=== PATIENT | male | born 1990 | race Two or more races ===

== ENCOUNTER 2016-08-10 15:38 | Emergency (ER) | payer SELFPAY ==
[~2016-08-10] VITALS: Ht 167.6 cm; Wt 61.2 kg
[2016-08-10 16:13] LABS: BILIRUBIN,URINE NEGATIVE (NEG); GLUCOSE,URINE NEGATIVE (NEG); NITRITE,URINE NEGATIVE (NEG); PROTEIN,URINE 30 mg/dL (NEG-TRACE); UROBILINOGEN,URINE 0.2 mg/dL (0.2 mg/dL)
[2016-08-10] MEDS ORDERED: KETOROLAC TROMETHAMINE 30 MG/ML INJ. IV ONE (16:15)
[2016-08-10] MEDS ORDERED: TAMSULOSIN 0.4 MG CAP.ER.24H. PO ONE (16:15)
[2016-08-10] MEDS ORDERED: IV NORMAL SALINE 1000ML BAG 1,000 ML IV ONE (16:15)
[2016-08-10] MEDS ORDERED: MORPHINE SULFATE 10 MG/ML VIAL. IV ONE (16:15)
[2016-08-10 16:27] LABS: BACTERIA,URINE 0 /HPF (0-FEW); WBC,URINE >40 /HPF (0-4)
--- NOTE | 2016-08-10 16:33 | RAD ---
CT of the abdomen and pelvis without contrast, 08/10/2016: History: Flank pain Noncontrast scans were obtained utilizing the renal stone protocol. There are surgical implants related to the vertebral bodies from L1 through L3. Associated artifacts degrade image quality in the renal regions. No intrarenal calculus is identified. No hydronephrosis is evident. The proximal ureters are not clearly seen. No radiopacity is seen along the course of either ureter to suggest a ureteral calculus. The partially filled urinary bladder is unremarkable. There is mild linear atelectasis or scarring posteriorly in the lung bases. The unopacified liver is unremarkable. The gallbladder is not well distended. No pancreatic abnormality is seen. The spleen is unremarkable. The bowel loops are not distended. The abdominal gas pattern is unremarkable. No free fluid or free air is evident in the abdomen or pelvis. IMPRESSION: No urinary tract calculi are identified, although the kidneys are partially obscured by artifacts arising from lumbar spine surgical implants. PQRS Compliance Statement: One or more of the following individualized dose reduction techniques were utilized for this examination: 1. Automated exposure control 2. Adjustment of the mA and/or kV according to patient size 3. Use of iterative reconstruction technique
[2016-08-10 16:36] LABS: BASO # 0.1 x10^3/uL (0.0-0.2); BASO % 1 % (0-3); EOS % 1 % (0-3); HEMATOCRIT 39.9 % (39.0-53.0); HEMOGLOBIN 13.2 g/dL (13.0-17.5); LYMPH # 2.9 x10^3/uL (1.0-4.8); LYMPH % 35 % (24-48); MEAN CORPUSCULAR HEMOGLOBIN 28 pg (25-35); MEAN CORPUSCULAR HGB CONC 33 g/dL (31-37); MEAN CORPUSCULAR VOLUME 83 fL (79-100); MONO % 12 % (0-9); NEUT % 52 % (31-73); PLATELET COUNT 254 x10^3/uL (140-400); RED BLOOD COUNT 4.78 x10^6/uL (4.30-5.70); RED CELL DISTRIBUTION WIDTH 13.9 % (11.5-14.5); WHITE BLOOD COUNT 8.4 x10^3/uL (4.0-11.0)
--- NOTE | 2016-08-10 16:48 | PHYS DOC ---
Past Medical History Past Medical History: No Pertinent History Past Surgical History: Other Additional Past Surgical Histo: back Alcohol Use: Rarely Drug Use: None Adult General Chief Complaint Chief Complaint: PAIN ON URINATION HPI HPI Patient is a 26 year old male with history of lumbar surgery who presents today with right flank pain that began a couple days ago. Patient describes the pain as sharp. Patient states he was seen by the PCP who did a urine analysis and noted patient has infection in his urine and was concerned patient could have a kidney stone. Patient was sent to the ED to be evaluated. Patient states he has had subjective fevers for 3 days. Patient denies any nausea vomiting. Review of Systems Review of Systems Constitutional: fever Eyes: Denies change in visual acuity, redness, or eye pain [] HENT: Denies nasal congestion or sore throat [] Respiratory: Denies cough or shortness of breath [] Cardiovascular: No additional information not addressed in HPI [] GI: Denies abdominal pain, nausea, vomiting, bloody stools or diarrhea [] : Right flank pain Musculoskeletal: Denies back pain or joint pain [] Integument: Denies rash or skin lesions [] Neurologic: Denies headache, focal weakness or sensory changes [] Endocrine: Denies polyuria or polydipsia [] Current Medications Current Medications Current Medications Medications (Trade) Dose Ordered Sig/[facility] Start Time Stop Time Status Last Admin Dose Admin Ketorolac Tromethamine (Toradol) 30 mg 1X ONCE 08/10/16 16:15 08/10/16 16:16 DC 08/10/16 16:36 30 MG Morphine Sulfate 5 mg 1X ONCE 08/10/16 16:15 08/10/16 16:16 DC 08/10/16 16:36 5 MG Sodium Chloride (Iv Sodium Chloride 0.9% 1000ml Bag) 1,000 ml @ 1,000 mls/hr 1X ONCE 08/10/16 16:15 08/10/16 17:14 08/10/16 16:36 1,000 MLS/HR Tamsulosin HCl (Flomax) 0.4 mg 1X ONCE 08/10/16 16:15 08/10/16 16:16 DC 08/10/16 16:35 0.4 MG Allergies Allergies Allergies Coded Allergies Type Severity Reaction Last Updated Verified No Known Drug Allergies 08/10/16 No Physical Exam Physical Exam Constitutional: Well developed, well nourished, no acute distress, non-toxic appearance. [] HENT: Normocephalic, atraumatic, bilateral external ears normal, oropharynx moist, no oral exudates, nose normal. [] Eyes: PERRLA, EOMI, conjunctiva normal, no discharge. [] Neck: Normal range of motion, no tenderness, supple, no stridor. [] Cardiovascular:Heart rate regular rhythm, no murmur [] Lungs & Thorax: Bilateral breath sounds clear to auscultation [] Abdomen: Bowel sounds normal, soft, no tenderness, no masses, no pulsatile masses. [] Skin: Warm, dry, no erythema, no rash. [] Back: Old healed surgical scar noted on the left flank region. No tenderness, mild right CVA tenderness. [] Extremities: No tenderness, no cyanosis, no clubbing, ROM intact, no edema. [] Neurologic: Alert and oriented X 3, normal motor function, normal sensory function, no focal deficits noted. [] Psychologic: Affect normal, judgement normal, mood normal. [] Current Patient Data Vital Signs Vital Signs Date Time Temp Pulse Resp B/P Pulse Ox O2 Delivery O2 Flow Rate FiO2 08/10/16 16:36 16 08/10/16 15:50 98.6 80 99 Room Air 98.6 Lab Values Laboratory Tests Test 08/10/16 16:00 08/10/16 16:20 Urine Collection Type Unknown Urine Color Yellow Urine Clarity Clear Urine pH 6.0 Urine Specific [place] 1.020 Urine Protein 30mg/dL (NEG-TRACE) Urine Glucose (UA) Negativemg/dL (NEG) Urine Ketones (Stick) Negativemg/dL (NEG) Urine Blood Large (NEG) Urine Nitrite Negative (NEG) Urine Bilirubin Negative (NEG) Urine Urobilinogen Dipstick 0.2mg/dL (0.2 mg/dL) Urine Leukocyte Esterase Small (NEG) Urine RBC 6-10/HPF (0-2) Urine WBC >40/HPF (0-4) Urine Bacteria 0/HPF (0-FEW) Urine Mucus Marked/LPF White Blood Count 8.4x10^3/uL (4.0-11.0) Red Blood Count 4.78x10^6/uL (4.30-5.70) Hemoglobin 13.2g/dL (13.0-17.5) Hematocrit 39.9% (39.0-53.0) Mean Corpuscular Volume 83fL (79-100) Mean Corpuscular Hemoglobin 28pg (25-35) Mean Corpuscular Hemoglobin Concent 33g/dL (31-37) Red Cell Distribution Width 13.9% (11.5-14.5) Platelet Count 254x10^3/uL (140-400) Neutrophils (%) (Auto) 52% (31-73) Lymphocytes (%) (Auto) 35% (24-48) Monocytes (%) (Auto) 12% (0-9) H Eosinophils (%) (Auto) 1% (0-3) Basophils (%) (Auto) 1% (0-3) Neutrophils # (Auto) 4.4x10^3uL (1.8-7.7) Lymphocytes # (Auto) 2.9x10^3/uL (1.0-4.8) Monocytes # (Auto) 1.0x10^3/uL (0.0-1.1) Eosinophils # (Auto) 0.0x10^3/uL (0.0-0.7) Basophils # (Auto) 0.1x10^3/uL (0.0-0.2) Laboratory Tests 08/10/16 16:20 EKG EKG [] Radiology/Procedures Radiology/Procedures []PROCEDURE: CT ABDOMEN PELVIS WO CONTRAST CT of the abdomen and pelvis without contrast, 08/10/2016: History: Flank pain Noncontrast scans were obtained utilizing the renal stone protocol. There are surgical implants related to the vertebral bodies from L1 through L3. Associated artifacts degrade image quality in the renal regions. No intrarenal calculus is identified. No hydronephrosis is evident. The proximal ureters are not clearly seen. No radiopacity is seen along the course of either ureter to suggest a ureteral calculus. The partially filled urinary bladder is unremarkable. There is mild linear atelectasis or scarring posteriorly in the lung bases. The unopacified liver is unremarkable. The gallbladder is not well distended. No pancreatic abnormality is seen. The spleen is unremarkable. The bowel loops are not distended. The abdominal gas pattern is unremarkable. No free fluid or free air is evident in the abdomen or pelvis. IMPRESSION: No urinary tract calculi are identified, although the kidneys are partially obscured by artifacts arising from lumbar spine surgical implants. PQRS Compliance Statement: One or more of the following individualized dose reduction techniques were utilized for this examination: 1. Automated exposure control 2. Adjustment of the mA and/or kV according to patient size 3. Use of iterative reconstruction technique DICTATED and SIGNED BY: JAG GRAHAM MD DATE: 08/10/16 1621 CC: MAYANK PICKENS APRN ~ Course & Med Decision Making Course & Med Decision Making Pertinent Labs and Imaging studies reviewed. (See chart for details) This is a 26-year-old male patient who presents today complaining of right flank pain. Patient was seen earlier by the PCP, PCP is concerned of an infected kidney stone. Patient's urine is positive for UTI. He denies any risky behavior. Urine was sent to lab to rule out any STDs. CT of the abdomen and pelvic was negative for any acute findings. CBC and CMP are negative. He was discharged with Cipro. He was instructed to follow-up with his own doctor or the provided urologist in the next 7 days. His provided return precautions and discharged in stable condition. Dragon Disclaimer Dragon Disclaimer This electronic medical record was generated, in whole or in part, using a voice recognition dictation system. Departure Departure Impression: Primary Impression: Acute cystitis Disposition: HOME, SELF-CARE Condition: STABLE Referrals: DAYSI MICHAUD DO follow up with him in one week or your own doctor Patient Instructions: Urinary Tract Infection Additional Instructions: Your urine was positive for infection. Your CT of the abdomen and pelvic could not capture any kidney stones. We put you on pain medicines and antibiotics. Please take them as prescribed. Come back to the ED if symptoms worsen. Follow- up with your doctor the provided urologist in the next 7 days. Scripts Ciprofloxacin Hcl (Cipro)500 Mg Tablet1 Tab PO BID #14 TAB Prov:MAYANK PICKENS APRN 08/10/16 Hydrocodone/Apap 5-325 ([place] 5-325 Tablet)1 Each Tablet1-2 Tab PO Q4-6HRS #20 TAB Prov:MAYANK PICKENS APRN 08/10/16 Problem Qualifiers Primary Impression: Acute cystitis Hematuria presence: with hematuria Qualified Code: N30.01 - Acute cystitis with hematuria MAYANK PICKENS APRN Aug 10, 2016 16:48
[2016-08-10 16:49] LABS: CALCIUM 8.8 mg/dL (8.5-10.1); CREATININE 0.9 mg/dL (0.7-1.3); POTASSIUM 3.9 mmol/L (3.5-5.1)
[2016-08-10 16:55] LABS: ALBUMIN 3.9 g/dL (3.4-5.0); ALBUMIN/GLOBULIN RATIO 0.9 (1.0-1.7); TOTAL BILIRUBIN 0.5 mg/dL (0.2-1.0); TOTAL PROTEIN 8.3 g/dL (6.4-8.2)
[2016-08-10] MEDS ORDERED: CIPR500T94 PO (16:55)
[2016-08-10] MEDS ORDERED: HYDR-971 PO (16:55)
[2016-08-10 17:51] VITALS: BP 122/74
== END 2016-08-10 18:02 | disposition home or self-care (01) ==
LOC: ER 15:38
DX: N30.00 Acute cystitis without hematuria (principal); R50.9 Fever, unspecified
CPT/HCPCS: 36415; 74176; 80053; 81001; 83690; 85027; 87086; 96361; 96374; 96375; 99285; J1885; J2270; J7030; 87491; 87591